=== PATIENT | male | born 1940 | race Caucasian/White ===

== ENCOUNTER 2017-02-15 21:48 | Emergency (ER) | payer OTHER, MEDICAID ==
[~2017-02-15] VITALS: Ht 172.7 cm; Wt 85.0 kg
[2017-02-15 21:55] VITALS: Ht 172.7 cm; Wt 85.0 kg
[2017-02-15] MEDS ORDERED: WARF1TAB8 PO (23:43)
[2017-02-15] MEDS ORDERED: DIGO125T19 PO (23:43)
--- NOTE | 2017-02-15 23:45 | ERD ---
ER Documentation Chief Complaint Date/Time DATE: 02/15/17 TIME: 23:41 Chief Complaint pt slipped and fell yesterday, difficulty walking, on warfarin HPI 76-year-old male presents to emergency department for complaints of left upper thigh pain after slipping and falling yesterday. Patient slipped and fell in the tab, landed on the left upper thigh area, noted some bruising afterwards, described pain as throbbing pain, 6/10 scale, is worse upon touching the area. Patient is currently on warfarin and is worried about it. Patient was able to family First, but now because of the pain is unable to do so. Patient denies any numbness or tingling. Patient denies any deformity. Patient denies any left knee pain left hip pain, able to do full range of motion of those joints without any restriction and without any pain. ROS All systems reviewed and are negative except as per history of present illness. Medications Home Meds Reported Medications Digoxin* (Digox*) Unknown Strength Tablet, PO EVERY OTHER DAY, TAB 02/15/17 Warfarin Sodium (Warfarin Sodium) Unknown Strength Tablet, PO, TAB 02/15/17 Allergies Allergies: Coded Allergies: No Known Allergy (Unverified , 02/15/17) PMhx/Soc Hx Cardiac Disorders: Yes (HTN, Heart disease) Hx Alcohol Use: Yes (rarely a beer) Hx Substance Use: No Hx Tobacco Use: No Smoking Status: Never smoker FmHx Family History: No coronary disease, No diabetes, No other Physical Exam Vitals Vital Signs Date Time Temp Pulse Resp B/P Pulse Ox O2 Delivery O2 Flow Rate FiO2 02/15/17 21:55 98.1 89 20 137/87 98 Physical Exam GENERAL: The patient is well developed and appropriate for usual state of health, in no apparent distress. CHEST: Clear to auscultation bilaterally. There are no rales, wheezes or rhonchi. HEART: Regular rate and rhythm. No murmurs, clicks, rubs or gallops. No S3 or S4. ABDOMEN: Soft, nontender and nondistended. Good bowel sounds. No rebound or guarding. No gross peritonitis. No gross organomegaly or masses. No Calix sign or McBurney point tenderness. BACK: No midline or flank tenderness. EXTREMITIES: Full to do full range of motion of the left knee and the left hip without any shortness in and without any pain. Tenderness on palpation on the left upper thigh. No deformity noted. Equal pulses bilaterally. Full range of motion of other joints of the body. Grossly neurovascularly intact. NEURO: Alert and oriented. Cranial nerves 2-12 intact. Motor strength in all 4 extremities with 5/5 strength. Sensation grossly intact. Normal speech and gait. SKIN: Noted ecchymosis in the left eye area with tenderness on palpation. There is no apparent rash or petechia. The skin is warm and dry. HEMATOLOGIC AND LYMPHATIC: There is no evidence of excessive bruising or lymphedema. No gross cervical, axillary, or inguinal lymphadenopathy. Results 24 hrs PROCEDURE: XR Femur. CLINICAL INDICATION: Pain and swelling. TECHNIQUE: AP and lateral views of the left femur. COMPARISON: None available. FINDINGS: No fracture or dislocation is identified. The joint spaces are preserved. IMPRESSION: 1. No fracture or dislocation of the left femur. RPTAT: HTAR .Dick Hamm MD, MD Date Time Electronically viewed and signed by .Dick Hamm MD, MD on 02/16/2017 00:17 .R/ CC: AUBREE RICHARDS [employer] Procedures/MDM Medical Decision Making: Patient's pain is most likely consistent with a leg contusion. There is no suspicion for neurovascular compromise. Patient has intact sensation and circulation of the affected extremity. There is low suspicion for septic arthritis. Patient does not have any fever. Radiology exams of the affected area does not show any fracture or dislocation. Disposition: Home. Patient is given prescription for Tylenol for mild to moderate pain. Patient was advised to elevate the affected area and apply ice on affected area. Patient was advised that if symptoms are worse, numbness, tingling, high fever, unable to move joint, worsening symptoms, to return to emergency department immediately. Otherwise, patient is advised to follow up with the primary care doctor in 5-7 days for reevaluation of symptoms. Departure Diagnosis: Primary Impression: Contusion of leg Encounter type: initial encounter Laterality: left Qualified Code: S80.12XA - Contusion of leg, left, initial encounter Condition: Stable Patient Instructions: Contusion, Lower Extremity (Child) Additional Instructions: Patient is given prescription for Tylenol for mild to moderate pain. Patient was advised to elevate the affected area and apply ice on affected area. Patient was advised that if symptoms are worse, numbness, tingling, high fever, unable to move joint, worsening symptoms, to return to emergency department immediately. Otherwise, patient is advised to follow up with the primary care doctor in 5-7 days for reevaluation of symptoms. AUBREE RICHARDS NP Feb 15, 2017 23:45
--- NOTE | 2017-02-16 00:17 | RADRPT ---
PROCEDURE: XR Femur. CLINICAL INDICATION: Pain and swelling. TECHNIQUE: AP and lateral views of the left femur. COMPARISON: None available. FINDINGS: No fracture or dislocation is identified. The joint spaces are preserved. IMPRESSION: 1. No fracture or dislocation of the left femur. RPTAT: HTAR .Dick Hamm MD, Date Time Electronically viewed and signed by .Dick Hamm MD, on 02/16/2017 00:17 .R/
[2017-02-16] MEDS ORDERED: ACET500C5 PO (00:33)
== END 2017-02-16 01:30 | disposition home or self-care (01) ==
LOC: FTE 21:48
DX: S70.12XA Contusion of left thigh, initial encounter (principal); I10 Essential (primary) hypertension; W01.0XXA Fall on same level from slipping, tripping and stumbling without subsequent striking against object, initial encounter; Y92.9 Unspecified place or not applicable; Z79.01 Long term (current) use of anticoagulants
CPT/HCPCS: 73550